=== PATIENT | female | born 1955 | race Caucasian/White ===

== ENCOUNTER → 2019-06-01 | Day surgery (SDC) | payer OTHER ==
--- NOTE | 2019-06-02 07:39 | OP ---
DATE OF OPERATION: 06/01/2019 PREOPERATIVE DIAGNOSIS: Right breast mass, 10 o'clock, 8 cm from the nipple. POSTOPERATIVE DIAGNOSIS: Right breast mass, 10 o'clock, 8 cm from the nipple. PROCEDURE: Right ultrasound-guided core biopsy and clip placement. ANESTHESIA: Local. ATTENDING SURGEON: Kiel Chan MD ESTIMATED BLOOD LOSS: Minimal. COMPLICATIONS: None. DESCRIPTION OF PROCEDURE: Patient was made aware of the risks and benefits of the procedure and consented. She was placed in a supine position. Under sterile conditions with 1% lidocaine for local anesthesia, a small nils was made in the skin. Using a 10-gauge suction, a biopsy via superolateral approach under ultrasound guidance, multiple cores were obtained and submitted to pathology. Likewise, under ultrasound guidance, a bowtie clip was placed into the biopsy region. Well tolerated by patient. Steri-Strip and a sterile bandage were applied. We will contact her with the results. KIEL CHAN M.D. [id number]
--- NOTE | 2019-06-08 15:00 | PATH ---
Surgical Pathology Report Patient Name: CECY GOMES [facility]. Rec. #: [id number] /Age/Gender: 1955 (Age: 63) / F Account: [id number] Location: [facility] RADIOLOGY U Taken: 06/01/2019 Received: 06/01/2019 Reported: 06/08/2019 Physicians: Darrell Vega M.D. Specimen(s) Received RIGHT BREAST 10:00 8 CM FN CORE BIOPSY Clinical History Non-palpable lesion. Ultrasound findings: Suspicious Final Diagnosis A BREAST, RIGHT, 10:00 8 CM FN, CORE BIOPSY: FIBROFATTY TISSUE AND BLOOD CLOT. (SEE NOTE). Note: No glandular breast parenchyma is identified. Correlation with radiologic findings is suggested. Findings conveyed to Nicci Feliciano at [facility] on 06/05/19. Electronically Signed Sonali Beck M.D. Gross Description Received in formalin, labeled "right breast 10:00, 8 cm fn " is a 2.2 x 1.8 x 0.2 cm aggregate of yellow-shelton tissue admixed with blood clot. Entirely submitted in one cassette. Time to formalin fixation: < 1 minute Total formalin fixation time: Approximately 6 hours AE/06/01/2019 ebram/06/01/2019
== END | disposition home or self-care (01) ==
LOC: FRADUS-SUR 14:20
PROVIDERS: ATTEND Surgery Surgical Oncology
PROC: 0HBT3ZX Excision of Right Breast, Percutaneous Approach, Diagnostic (ICD-10-PCS; principal; 2019-06-01)
DX: N60.89 Other benign mammary dysplasias of unspecified breast (principal); N63.13 Unspecified lump in the right breast, lower outer quadrant
CPT/HCPCS: 19083; 87899; 88305-TC; A4648

== ENCOUNTER 2019-06-14 11:00 | Day surgery (SDC) | payer OTHER ==
[2019-06-07 11:33] VITALS: BMI 25.5
--- NOTE | 2019-06-11 16:15 | HP ---
Admitting History and Physical - Primary Care Physician PCP: Grabiel Mcgraw - Admission Chief Complaint: Right breast mass History of Present Illness: 63 year old postmenapausal female S/P right breast core biopsy for new suspicious right breast mass at 10:00 8 cm Fn .7x.6x.6 cm. Right breast Us core biopsy was performed 06/01/2019. The path showed fatty tissues and is discordinant. History Source: Patient Limitations to Obtaining History: No Limitations - Past Medical History Cardiovascular: Yes: HTN Endocrine: Yes: Hypothyroidism - Past Surgical History Past Surgical History: Yes: Hysterectomy (TAHBSO 2005), Mastectomy (1993 left mx ) - Smoking History Smoking history: Never smoked Have you smoked in the past 12 months: No - Alcohol/Substance Use Hx Alcohol Use: No Home Medications - Allergies Allergies/Adverse Reactions: Allergies Allergy/AdvReac Type Severity Reaction Status Date / Time Penicillins AdvReac Intermediate PASSED OUT Verified 06/07/19 11:11 - Home Medications Home Medications: Ambulatory Orders Levothyroxine [Synthroid -] 112 mcg PO DAILY 06/07/19 Olmesartan/Hydrochlorothiazide [Benicar Hct 40-25 mg Tablet] 1 each PO DAILY Ranitidine HCl 75 mg PO DAILY PRN 06/07/19 Family Medical History Family History: Denies Physical Examination Constitutional: Yes: No Distress Breast(s): Yes: Other (no recurrence along left chest wall. Right breast negative no mass or adenopathy palpated right breast core bx changes.) Problem List - Problems (1) Mass of right breast Code(s): N63.10 - UNSPECIFIED LUMP IN THE RIGHT BREAST, UNSPECIFIED QUADRANT Assessment/Plan Right breast excisional biopsy with mammogram needle localization
[2019-06-14] MEDS ORDERED: oxyCODONE HCL 5 MG TABLET PO PRN ×2 (12:35)
[2019-06-14] MEDS ORDERED: ONDANSETRON 4 MG/2 ML VIAL IVPUSH PRN ×2 (12:35→15:16)
[2019-06-14] MEDS ORDERED: PROPOFOL 20 ML ONE ×2 (12:43)
[2019-06-14] MEDS ORDERED: MIDAZOLAM HCL 2 MG/2 ML SINGLE DOSE VIAL ONE (12:44)
[2019-06-14] MEDS ORDERED: LACTATED RINGERS SOLUTION 1,000 ML IV SCH (12:45)
[2019-06-14] MEDS ORDERED: LIDOCAINE HCL 1% PRESERVATIVE FREE - 30ML VIAL ONE (13:17)
[2019-06-14] MEDS ORDERED: BUPIVACAINE HCL/PF 2.5 MG/ML - 30 ML VIAL IJ ONE (13:17)
[2019-06-14] MEDS ORDERED: ONDANSETRON 4 MG/2 ML VIAL ONE (14:13)
[2019-06-14] MEDS ORDERED: LIDOCAINE HCL/PF 2% SDV 5ML VIAL ONE (14:13)
[2019-06-14] MEDS ORDERED: VANCOMYCIN 1,000 MG VIAL (RESTRICTED TO ID ONLY) ONE (14:13)
[2019-06-14] MEDS ORDERED: EPHEDRINE SULFATE/0.9% NACL/PF 50 MG/10 ML SYRINGE NR ONE (14:14)
[2019-06-14] MEDS ORDERED: GUM MASTIC/STORAX/MSAL/ALCOHOL 1 DRP DROPSBTL MC ONE (14:50)
[2019-06-14] MEDS ORDERED: BUPIVACAINE HCL/PF 0.25% (2.5MG/ML) 10 ML VIAL IJ ONE (14:55)
[2019-06-14] MEDS ORDERED: DEXTROSE 5%-0.45% SALINE 1,000 ML IV SCH (15:30)
--- NOTE | 2019-06-14 15:35 | OP ---
DATE OF OPERATION: 06/14/2019 PREOPERATIVE DIAGNOSIS: Right breast upper inner quadrant mass. POSTOPERATIVE DIAGNOSIS: Right breast upper inner quadrant mass. Await permanent section. PROCEDURE: Right breast excisional biopsy with mammographic needle localization. ANESTHESIA: General laryngeal mask airway anesthesia. PRIMARY SURGEON: Sally Mcgraw M.D. EXPLOSIVE ORDNANCE TECHNICIAN: Rosalba Jaime COMPLICATIONS: There were no complications. DESCRIPTION OF PROCEDURE: Briefly, the patient is a 63-year-old white female from [facility] with no family history of breast or ovarian cancer. The patient underwent a left breast modified radical mastectomy in 1993 and underwent radiation but never received chemotherapy. She was being followed with routine right breast mammography and ultrasound, was found to have a right breast 10 o'clock suspicious finding measuring about 7 x 6 x 6 mm on ultrasound and ultrasound guided core biopsy just showed fatty tissue, no notice breast tissue which was felt to be discordant with the imaging findings. She is advised to undergoing an excisional biopsy of this mass. The patient was brought in through ambulatory surgery on June 14, 2019. She first underwent a mammographic needle localization of the clip in the upper outer aspect of the right breast, then was brought to the holding area. In the holding area, site verification was made, and informed consent was obtained. She was brought into the operating room and laid on the OR table in a supine position. Venodynes were placed on the lower extremities. 1 g of Ancef was given prior to incision. She underwent general laryngeal mask airway anesthesia. The right breast was sterilely prepped and draped in usual fashion, and timeout was performed. Incision was made adjacent to the needle localization site in the upper outer aspect of the right breast since dissection is undertaken around the needle localization removing the breast tissue completely around the needle localization. There was noted to be a fairly significant hematoma which was excised with the excision and completely evacuated. The specimen was completely removed with the wire intact within the middle of the specimen, and the specimen was oriented with a long lateral, short superior suture. Specimen radiographs show removal of the clip in question. Hemostasis was achieved, and the wound was copiously irrigated with warm, sterile saline. At this point, the breast tissue is reapproximated using 2-0 plain suture. The skin was closed using interrupted 3-0 deep dermal Vicryl suture and a running 4-0 subcuticular Biosyn suture. Mastisol, Steri-Strips were applied over the wound, compressive dressing placed over this. The patient tolerated procedure well without difficulty, and the laryngeal mask airway tube was removed at the end of the case. The patient will be recovered in the post anesthesia care unit then will be discharged home the same day once the discharge criteria are met . She is to follow up in the office in 1 week check. SALLY MCGRAW M.D. [id number]
[2019-06-14 16:13] VITALS: TEMP 97.8
[2019-06-14 16:53] VITALS: BP 135/70; PULSE 90
--- NOTE | 2019-06-19 08:51 | PATH ---
Surgical Pathology Report Patient Name: CECY GOMES Med. Rec. #: [id number] /Age/Gender: 1955 (Age: 63) / F Account: [id number] Location: [facility] AMBULATORY Taken: 06/14/2019 Received: 06/14/2019 Reported: 06/19/2019 Physicians: Grabiel Mcgraw M.D. Specimen(s) Received RIGHT BREAST EXCISION Clinical History Recent needle core biopsy discordant with imaging Final Diagnosis BREAST, RIGHT, EXCISIONAL BIOPSY: BENIGN MATURE FIBROADIPOSE TISSUE WITH VARIABLY COLLAGENIZED STROMA, FOCAL FAT NECROSIS, CHRONIC INFLAMMATION, HISTIOCYTIC INFILTRATE, AND HEMORRHAGE ASSOCIATED WITH AREA OF PRIOR BIOPSY. NO GLANDULAR BREAST PARENCHYMA IDENTIFIED. Comment: Suggest clinical and imaging correlation. Electronically Signed Mi Aguirre M.D. Gross Description Received fresh on an AccuGrid, labeled "right breast excisional biopsy" is an 11 g, 3.5 x 3 x 1.5 cm. shelton-yellow, irregular, portion of fibroadipose tissue with a needle localization wire present. There is a short suture marking the superior aspect and a long suture marking the lateral aspect, per the surgeon. There is no skin or nipple present. The specimen is inked as follows: superior and lateral blue; inferior green; medial yellow; anterior red; deep black. The specimen is serially sectioned from lateral to medial. Sectioning reveals a 1.4 x 1.2 x 1 cm hemorrhagic biopsy site focally abutting the anterior and superior margins. The biopsy site is 0.3 cm from closest inferior margin. Remainder of margins are widely free. Entire specimen is sequentially submitted in 9 cassettes as follows: 1- medial margin; 2-7: hemorrhagic biopsy site; 9- lateral margin. Total formalin fixation time: Approximately 29-30 hours MLSZ/06/15/2019 sanml/06/15/2019
== END 2019-06-14 16:45 | disposition home or self-care (01) ==
LOC: FASU 11:00
PROVIDERS: ATTEND Surgery Surgical Oncology
PROC: 0HBT0ZX Excision of Right Breast, Open Approach, Diagnostic (ICD-10-PCS; principal; 2019-06-14 14:22)
DX: D24.1 Benign neoplasm of right breast (principal); N64.89 Other specified disorders of breast; N63.11 Unspecified lump in the right breast, upper outer quadrant; I10 Essential (primary) hypertension; E03.9 Hypothyroidism, unspecified; Z90.12 Acquired absence of left breast and nipple; Z90.710 Acquired absence of both cervix and uterus
CPT/HCPCS: 19281; 88307-TC; 94760